=== PATIENT | female | born 1990 | race Caucasian/White ===

== ENCOUNTER 2020-01-05 11:32 | Emergency (ER) | payer OTHER, SELFPAY ==
--- NOTE | ~2020-01-05 | US_ITS ---
EXAMINATION: US OB <=14 wk fetus w TV DATE: 01/05/2020 14:02 INDICATION: Pelvic pain during first trimester of TECHNIQUE: Real-time pelvic ultrasound utilizing both a transvaginal and transabdominal probe was pe rformed. The interpreting radiologist was not present for the study. COMPARISON: None. FINDINGS: The uterus measures 7.4 x 6.3 x 8.0 cm. There is an intrauterine gestational sac. A yolk sac and fet al pole are identified. The crown rump length measures 1.6 cm, which correlates with an estimated ges tational age of 8 weeks and 0 days. heart motion is identified measuring 161 beats per minute ( bpm) by M-mode Doppler. The right ovary measures 3.8 x 2.6 x 2.5 cm. 1.4 cm anechoic likely corpus luteum cyst in the right o vary. The left ovary measures 2.1 x 1.6 x 2.1 cm. There is no free fluid in the pelvis. IMPRESSION: 1. Single living fetus with heart rate of 161 bpm. 2. Gestational age by ultrasound of 8 weeks 0 day(s) +/- 5 day(s) with ultrasound estimated date of delivery (DANIELA) of 08/16/2020. Reviewed, dictated and finalized at location A. IMPRESSION: 1. Single living fetus with heart rate of 161 bpm. 2. Gestational age by ultrasound of 8 weeks 0 day(s) +/- 5 day(s) with ultraso und estimated date of delivery (DANIELA) of 08/16/2020.
[2020-01-05 11:41] VITALS: BP 107/50; PULSE 85; RESP 18; TEMP 36.8; O2SAT 100
[2020-01-05] MEDS: SODIUM CHLORIDE 0.9% IV 1,000 ML 999 ML IV CONT (12:40)
--- NOTE | 2020-01-05 12:46 | ED.ABDPAIN ---
HPI - Abdominal Pain General Chief Complaint: Abdominal Pain Stated Complaint: , vomiting Time Seen by Provider: 01/05/20 11:54 Source: patient Mode of arrival: ambulatory Limitations: no limitations History of Present Illness HPI narrative: Patient is a 29-year-old female who presents to emergency department for evaluation of right adnexal discomfort noting aching pain that is been present for 6 weeks patient who is yet to follow-up with gynecology was seen a week ago and emergency department had ultrasound revealing right adnexal cyst. Patient notes she has had some white discharge noted is white denies any concern for STDs. Patient is currently with her fourth . Patient denies fever chills notes that she has had some nausea with a few episodes of emesis. Related Data Home Medications Medication Instructions Recorded Confirmed 01/05/20 Allergies Allergy/AdvReac Type Severity Reaction Status Date / Time No Known Allergies Allergy Unverified 01/05/20 11:47 Review of Systems Review of Systems: All systems reviewed & are unremarkable except as noted in HPI and below PMFSH Family History Family History (Updated 06/06/14 @ 07:13 by DOCTOR UNKNOWN) Mother Family history of malignant neoplasm of ovary, Onset Age: 30 Social History Social History Smoking status: Never smoker Alcohol intake: never Gender identity (if verbalized by the patient): Female Exam Narrative: Exam Narrative: GENERAL: Well-appearing, well-nourished, and in no acute distress. HEAD: Normocephalic, atraumatic. EYES: PERRLA and EOMI. ENT: Nares clear, no rhinorrhea or epistaxis. Mucous membranes moist. CHEST: Clear to auscultation. No respiratory distress. No wheezes rales or rhonchi HEART: Regular rate and rhythm. No murmur heard. Normal peripheral pulses. ABDOMEN: Soft, right adnexal tenderness no rebound or guarding, nondistended EXTREMITIES: Normal range of motion. No edema. SKIN: Warm, dry, no rash. NEURO: No focal deficits. Alert and oriented x3. PSYCH: Normal mood and affect. Course Course Emergency Course: Patient in the room in no distress aware of case findings treatment plan and diagnosis. No high risk changes in the blood work or imaging patient was offered STD testing but is refusing patient notes she will follow with electroplater and will return if symptoms worsen Vital Signs Vital signs: Vital Signs Temperature 98.2 F 01/05/20 11:41 Pulse Rate 85 01/05/20 11:41 Respiratory Rate 18 01/05/20 11:41 Blood Pressure 107/50 L 01/05/20 11:41 Pulse Oximetry 100 01/05/20 11:41 Temperature 98.2 F 01/05/20 11:41 Pulse Rate 97 01/05/20 14:31 Respiratory Rate 18 01/05/20 14:31 Blood Pressure 124/78 01/05/20 14:31 Pulse Oximetry 97 01/05/20 14:31 MDM - Abdominal Pain MDM Narrative Medical decision making narrative: Patient in the room in no distress aware of case findings treatment plan and diagnosis agreeing to follow-up as directed or to return if symptoms worsen or concerns. Patient is afebrile nontoxic-appearing no distress. Lab Data Result diagrams: 01/05/20 12:50 01/05/20 12:50 Labs: Lab Results 01/05/20 01/05/20 01/05/20 Range/Units 12:25 12:50 12:50 WBC 5.6 (4.5-10.0) K/mm3 RBC 4.36 (4.2-5.4) M/mm3 Hgb 13.5 (12.0-15.0) g/dL Hct 39.8 (37.0-47.0) % MCV 91.3 (80-100) fl MCH 31.0 (26-34) pg MCHC 33.9 (32-36) g/dl RDW 12.5 (11.5-14.5) % Plt Count 269 (150-375) k/mm3 MPV 10.0 (7.4-10.4) fl Immature Gran % (Auto) 0.2 (0-0.5) % Neut % (Auto) 42.9 L (45.5-73.1) % Lymph % (Auto) 44.8 H (18.3-44.2) % Ford % (Auto) 11.0 H (2.6-8.5) % Eos % (Auto) 0.7 (0-4.4) % Baso % (Auto) 0.4 (0.2-1.2) % Lymph # (Auto) 2.49 (0.9-3.2) K/mm3 Ford # (Auto) 0.6 (0.1-0.6) K/mm3
[2020-01-05 12:49] LABS: Add Urine Microscopic? YES; Amorphous Sediment Urine Few; Appearance Urine Cloudy (Clear); Bacteria Urine 1+ /hpf; Bilirubin Urine Negative (Negative); Blood Urine Negative (Negative); Budding Yeast Urine Present /hpf; Color Urine Yellow (Yellow); Glucose Urine UA Negative (Negative); Ketones Urine 1+ mg/dL (Negative); Leukocyte Esterase Ur Negative LEU/UL (Negative); Mucus Urine Rare /lpf; Nitrate Urine Negative (Negative); Protein Urine 1+ mg/dL (Negative); RBC Urine 0-2 /hpf (0-2); Specific Grav Ur 1.017 (1.001-1.035); Squamous Epithelial Cell Urine Many /hpf (Few); Urobilinogen Urine Negative mg/dL (<2.0); WBC Urine 0-3 /hpf
[2020-01-05 13:02] LABS: Basophils Percent Auto 0.4 % (0.2-1.2); Eosinophils Percent Auto 0.7 % (0-4.4); Hematocrit 39.8 % (37.0-47.0); Hemoglobin 13.5 g/dL (12.0-15.0); Immature Granulocyte Absolute 0.01 K/mm3 (0.00-0.031); Immature Granulocyte Percent A 0.2 % (0-0.5); Lymphocytes Absolute Auto 2.49 K/mm3 (0.9-3.2); Lymphocytes Percent Auto 44.8 % (18.3-44.2); Mean Corpuscular HGB Conc 33.9 g/dl (32-36); Mean Corpuscular Volume 91.3 fl (80-100); Monocytes Absolute Auto 0.6 K/mm3 (0.1-0.6); Neutrophils Absolute Auto 2.4 K/mm3 (1.3-6.7); Neutrophils Percent Auto 42.9 % (45.5-73.1); Platelet Count Result 269 k/mm3 (150-375); Red Blood Count 4.36 M/mm3 (4.2-5.4); Red Cell Distribution Width 12.5 % (11.5-14.5); White Blood Count 5.6 K/mm3 (4.5-10.0)
[2020-01-05 13:17] LABS: Alanine Aminotransferase 16 U/L (4-35); Albumin Level 4.6 g/dL (3.5-5.1); Alkaline Phosphatase 39 U/L (38-126); Aspartate Amino Transferase 29 U/L (14-36); Bilirubin,Total 0.9 mg/dL (0.2-1.3); Blood Urea Nitrogen 10 mg/dL (7-17); Calcium 9.7 mg/dL (8.4-10.2); Carbon Dioxide 19 mmol/L (22-30); Chloride 108 mmol/L (98-107); Estimated CRCL calculation 111 ml/min; Estimated Glomerular Filt Rate > 60; Glucose 87 mg/dL (65-105); Potassium 4.1 mmol/L (3.4-5.0); Sodium 137 mmol/L (137-145)
[2020-01-05 14:31] VITALS: BP 124/78; PULSE 97; RESP 18; O2SAT 97
[2020-01-05] MEDS: ONDANSETRON INJ 4 MG/2 ML VIAL IV PUSH (14:44)
[2020-01-05] MEDS: ONDANSETRON INJ 4 MG/2 ML VIAL (14:48)
== END 2020-01-05 14:49 | disposition home or self-care (01) ==
PROVIDERS: Emergency Medicine Emergency Medical Services; Emergency Provider Emergency Medicine
DX: O26.891 Other specified pregnancy related conditions, first trimester (principal); R10.2 Pelvic and perineal pain; Z3A.08 8 weeks gestation of pregnancy
CPT/HCPCS: 36415; 76801; 76817; 80053; 81001; 84702; 85025; 86900; 86901; 96361; 96374; 96375; 99284; J2405; J7030

== ENCOUNTER 2020-06-12 23:20 | Observation (INO) | payer OTHER, SELFPAY ==
--- NOTE | 2020-06-12 23:21 | PC.NURSE ---
Pt. amb to ed w/ cc Right sided Jaw pain. Upon arrival to room. pt states she is 31 wks and is having abdominal cramping and low back pain. Pt. states she is . States she is feeling baby move normally. pt also reports general weakness. Pt. HR 88, BP 118/70, Temp 98.3 Oral, and respirations 18. Per ER Charge Martha Chauhan RN, take pt. to OB for evaluation. Spoke w/ Christina. Informed her pt. is Afebrial and stable and this time for transport.
[2020-06-12 23:28] VITALS: TEMP 36.7
[2020-06-12 23:31] VITALS: BP 113/58; PULSE 72
[2020-06-12 23:32] VITALS: BP 115/65; PULSE 70
[2020-06-12 23:35] VITALS: BMI 25.0
--- NOTE | 2020-06-12 23:43 | OBADM ---
This patient, Jodie Arellano, admitted to the OB room OB Post 113 for observation. Patient/family oriented to hospital policies and general routines including ID bracelet, bed and alarms, visiting hours, pain management, procedures, bathroom and other care routines, personal items, smoking policy, room service/diet, and visiting hours. Patient/Family are encouraged to report perceived risks to care and to ask questions if they do not understand what they are told or what they should do. Pt states pain to abd and back has been off and on for past few days. 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 Pt jaw pain started this evening prior to arrival. pt denies leaking or bleeding. pt feeling movements. baby very active and audibly active. pt states movements are uncomfortable. pt moans when movements are noted.
[2020-06-12 23:46] VITALS: BP 102/58; PULSE 79
[2020-06-13 00:01] VITALS: BP 108/55; PULSE 72
[2020-06-13 00:19] LABS: Add Urine Microscopic? YES; Amorphous Sediment Urine Few; Appearance Urine Cloudy (Clear); Bacteria Urine Trace /hpf; Bilirubin Urine Negative (Negative); Blood Urine Negative (Negative); Color Urine Yellow (Yellow); Glucose Urine UA Negative (Negative); Ketones Urine Negative (Negative); Leukocyte Esterase Ur Negative LEU/UL (NEGATIVE); Mucus Urine Rare /lpf; Nitrate Urine Negative (Negative); Protein Urine Negative (Negative); RBC Urine 0-2 /hpf (0-2); Specific Grav Ur 1.011 (1.001-1.035); Squamous Epithelial Cell Urine Occasional /hpf (Few); Urobilinogen Urine Negative mg/dL (<2.0); WBC Urine 0-3 /hpf (0-3)
--- NOTE | 2020-06-13 00:50 | PC.NURSE ---
Called Dr. Harrell. Report and lab results given. Orders received to send pt to ED if pt want to have jaw pain evaluated or pt may be d/c'd home if she does not want to be seen in ED. Upon entering pt room. Pt was sound asleep. Called pt by name and touched her shoulder before pt awoke. Pt declines wanting to be seen in ED. Pt state pain cont at this time.
--- NOTE | 2020-07-08 14:01 | PM.OBTRLD ---
OB - Triage/Final Diagnosis Evaluation Laboratory results: Laboratory Tests 06/13/20 00:05 Urine Color Yellow Urine Appearance Cloudy H Urine pH 7.0 Ur Specific [place] 1.011 Urine Protein Negative Urine Glucose (UA) Negative Urine Ketones Negative Ur Blood (Man) Negative Urine Nitrate Negative Urine Bilirubin Negative Urine Urobilinogen Negative Ur Leukocyte Esterase Negative Urine RBC 0-2 Urine WBC 0-3 Ur Squamous Epith Cells Occasional Amorphous Sediment Few H Urine Bacteria Trace Urine Mucus Rare Final Diagnosis (1) False labor: Code(s): O47.9 - False labor, unspecified Status: Acute
== END 2020-06-13 01:06 | disposition home or self-care (01) ==
PROVIDERS: Admitting Provider Obstetrics & Gynecology; Visit Provider Obstetrics & Gynecology
DX: O47.9 False labor, unspecified (principal); Z3A.00 Weeks of gestation of pregnancy not specified
CPT/HCPCS: 81001; 87086; G0378; G0379

== ENCOUNTER 2020-08-02 09:43 | Outpatient (CLI) | payer OTHER, SELFPAY ==
[2020-08-02 09:59] LABS: Hematocrit 34.7 % (37.0-47.0); Hemoglobin 11.8 g/dL (12.0-15.0); Mean Corpuscular Volume 96.9 fl (80-100); Mean Platelet Volume 10.5 fl (7.4-10.4); Platelet Count Result 258 k/mm3 (150-375); Red Blood Count 3.58 M/mm3 (4.2-5.4); Red Cell Distribution Width 12.7 % (11.5-14.5); White Blood Count 9.4 K/mm3 (4.5-10.0)
[2020-08-04 11:56] LABS: Rapid Plasma Reagin Non-Reactive (NonReactive)
== END 2020-08-02 09:44 | disposition home or self-care (01) ==
PROVIDERS: Visit Provider Obstetrics & Gynecology
DX: Z01.818 Encounter for other preprocedural examination (principal)
CPT/HCPCS: 36415; 85027; 86592; 86850; 86900; 86901

== ENCOUNTER 2020-08-04 05:33 | Inpatient (IN) | payer OTHER, SELFPAY ==
[2020-08-04] VITALS (78 sets, daily range): BP systolic 98–127; BP diastolic 55–78; PULSE 49–98; RESP 12–18; TEMP 36.1–36.6; O2SAT 96–100; BMI 25.8
[2020-08-04] MEDS: LACTATED RINGERS 1,000 ML 125 ML IV CONT ×3 (07:01→08:52)
--- NOTE | 2020-08-04 07:51 | WPDANESEPPF ---
Anes - Initial Pre Proc Eval Procedure: Operation Date: 08/04/20 07:30 Proposed Procedures p Repeat Section - Maria Guadalupe Witt MD Date/Time: 08/04/20 07:51 Surgeon: Maria Guadalupe Witt MD Pre Op Diagnosis: Repeat Patient Data Age: 30 Gender: F Height: 1.57 m Weight: 64 kg Last Vital Signs Pulse 87 08/04/20 06:45 BP 116/76 08/04/20 06:45 Pulse Ox 99 08/04/20 06:34 Allergies Allergy/AdvReac Type Severity Reaction Status Date / Time No Known Allergies Allergy Verified 06/12/20 23:05 Home Medications Medication Instructions Recorded Confirmed Type 1 tablet PO DAILY 06/12/20 07/11/20 History cholecalciferol (vitamin D3) 25 mcg PO DAILY 07/11/20 07/11/20 History [Vitamin D3] ferrous sulfate [Iron (ferrous 325 mg PO BID 07/11/20 07/11/20 History sulfate)] Patient hx anesthesia problems: none Family hx anesthesia problems: none PMFSH Family History Family History Mother Family history of malignant neoplasm of ovary, Onset Age: 30 Social History Social History Smoking status: Never smoker Alcohol intake: never Substance use: current Gender identity (if verbalized by the patient): Female Spiritual care concerns: No Anes - Eval Final PreProcedure Day of Procedure 08/04/20 07:51 Patient weight: overweight Heart: regular rate and rhythm Lungs: clear to auscultation and normal air movement Airway: Mallampati scale class II Neurological: alert and oriented Last oral intake: >/= 8 hours ASA classification: II Emergent: no Anesthetic plan: proceed Anesthesia type and monitoring: regional spinal and standard monitoring Informed Consent: The patient's anesthetic plan and its attendant risks and benefits were discussed with the patient/family/POA. Questions were solicited and answers provided to the satisfaction of the patient/family/POA.
--- NOTE | 2020-08-04 08:37 | PM.IMHP ---
H&P: HPI History of Present Illness Date/Time: 08/04/20 08:37 Chief complaint: Repeat Narrative: Jodie Arellano is a 30 year old female Multiip at term with previous deliveries. Patient desires sterilization. Once repeat delivery. We have agreed to proceed with delivery. She denies any contractions, vaginal bleeding, loss of fluid. She reports good movement. She denies any headache, blurry vision, epigastric pain. She denies any chest pain or shortness of breath. She denies any nausea, vomiting, fever, chills. Review of Systems Constitutional: Constitutional: Reports no additional constitutional complaints, Denies fatigue, Denies headache(s), Denies lethargy and Denies weakness Eyes: Eyes: Reports no additional eye complaints, Denies blurry vision and Denies photophobia ENT: Reports as per HPI, Denies headache(s) and Denies neck pain Cardiovascular: Cardiovascular: Denies chest pain, Denies diaphoresis, Denies leg edema, Denies palpitations and Denies dyspnea Respiratory: Respiratory: Denies hemoptysis, Denies dyspnea and Denies wheezing Gastrointestinal: Gastrointestinal: Denies abdominal pain, Denies melena, Denies bloating, Denies hematochezia, Denies nausea and Denies vomiting Genitourinary: Genitourinary: Reports no additional female genitourinary complaints Musculoskeletal: Musculoskeletal: Denies joint swelling, Denies neck pain, Denies numbness and Denies stiffness Neurologic: Denies Abnormal speech present, Denies confusion, Denies headache(s), Denies numbness and Denies weakness Psychiatric: Psychiatric: Denies anxiety, Denies confusion, Denies depression, Denies homicidal ideation and Denies suicidal ideation Endocrine: Endocrine: Denies fatigue and Denies palpitations Allergic/Immunologic: Allergic/Immunologic: Denies wheezing PMF Family History Family History Mother Family history of malignant neoplasm of ovary, Onset Age: 30 Social History Social History Smoking status: Never smoker Alcohol intake: never Substance use: current Gender identity (if verbalized by the patient): Female Spiritual care concerns: No Meds Home Medications and Allergies Home Medications Medication Instructions Recorded Confirmed Type 1 tablet PO DAILY 06/12/20 07/11/20 History cholecalciferol (vitamin D3) 25 mcg PO DAILY 07/11/20 07/11/20 History [Vitamin D3] ferrous sulfate [Iron (ferrous 325 mg PO BID 07/11/20 07/11/20 History sulfate)] Allergies Allergy/AdvReac Type Severity Reaction Status Date / Time No Known Allergies Allergy Verified 06/12/20 23:05 Vital Signs Vital Signs - 24 hr 08/04/20 05:54 08/04/20 05:55 08/04/20 05:59 Pulse Rate 79 Blood Pressure 111/67 Pulse Oximetry 99 100 08/04/20 06:00 08/04/20 06:04 08/04/20 06:09 Pulse Rate 73 Blood Pressure 109/64 Pulse Oximetry 100 99 08/04/20 06:14 08/04/20 06:15 08/04/20 06:19 Pulse Rate 76 Blood Pressure 106/64 Pulse Oximetry 100 100 08/04/20 06:24 08/04/20 06:29 08/04/20 06:30 Pulse Rate 86 Blood Pressure 112/69 Pulse Oximetry 99 100 08/04/20 06:34 08/04/20 06:45 Pulse Rate 87 Blood Pressure 116/76 Pulse Oximetry 99 Exam Const: General: healthy appearing, comfortable and no acute distress; No confusion Orientation/consciousness: No confusion Eyes: Direct Ophthalmoscopy: No photophobia Resp: Auscultation: clear to auscultation bilaterally, no rales, no rhonchi and no wheezes Cardio: Rate: regular rate Heart sounds: no click, no murmurs and no rubs GI: Inspection: non-distended GI Palp: No abdominal tenderness Auscultation: normal bowel sounds Neuro: General: No confusion Speech: No Abnormal speech present Extrem: General: normal to inspection, no pedal edema and no calf tenderness As
[2020-08-04] MEDS: ceFAZolin 2 GM/D5W 50 ML 2 GM/50 ML BAG IVPB (08:52)
--- NOTE | 2020-08-04 10:09 | PM.PROC ---
Procedure Note - Detailed Date of procedure: 08/04/20 Pre-op diagnosis: Repeat Post-op diagnosis: same Procedure performed: repeat low-transverse delivery Description of procedure: The patient was taken the operating room. She was prepped and draped in the dorsal supine position with leftward tilt after induction of spinal anesthetic. When anesthesia was found to be adequate a low-transverse skin incision was made and carried down to the level the fascia with the knife. The fascial incision was made at the midline with a scalpel. The fascial incision was extended laterally with Maddox scissors. The fascia was tented upward superior and inferior with Conchita clamps. The rectus muscles were dissected off bluntly. The rectus muscles at the midline. The preperitoneal fat was dissected bluntly at the superior aspect of the separate the rectus muscles. The peritoneal cavity was entered bluntly in the same area. The peritoneal incision was extended superior and inferior with good visualization of bladder. Bladder blade was inserted. A low-transverse incision was made on the uterus with the scalpel. It was carried down the level of the amniotic cavity with a knife. The amniotic cavity bluntly. The uterine incision was made laterally with blunt traction. The infant was delivered. The cord was clamped and cut. The infant was handed off to waiting pediatric staff. Cord bloods were obtained. The placenta was removed manually. The uterus was exteriorized. Uterus cleared of all clots and debris. Uterus closed in 0 Vicryl in a running locked fashion. An imbricating layer of 0 Vicryl was also placed on the to bolster the closure. The uterus was returned to the abdomen. The gutters were cleared of all clots and debris. The fascia was closed 0 Vicryl in a running fashion. Subcutaneous tissue was irrigated and bleeding areas were cauterized. The skin was closed with subcuticular absorbable kofi. The incision was covered with derma camargo. The patient tolerated the procedure well. She was taken recovery room stable condition. Sponge, lap, needle counts were correct x2. Anesthesia: spinal Surgeon: Maria Guadalupe Witt MD Drains: No Packing: No Pathology: none sent Complications: No immediate complications Condition: stable Disposition: floor Findings: Normal maternal anatomy. Average size infant with normal Apgars.
[2020-08-04] MEDS: OXYTOCIN 30 UNITS/NS 500 ML 30 UNITS/500 ML BAG 125 UNITS IV CONT (11:41)
[2020-08-04] MEDS: KETOROLAC 30 MG/ML VIAL (*BKC) IV PUSH (11:55)
--- NOTE | 2020-08-04 14:55 | OBPPTRN ---
1237 Patient transferred to room #282 via stretcher. Support person present. Oriented to unit, room, information board, rooming in, admission packet and security measures. Patient verbalizes understanding.
[2020-08-04] MEDS: KCL 20 MEQ/D5/0.45% SOD CHL 1,000 ML 125 ML IV CONT (16:30)
[2020-08-04] MEDS: DOCUSATE SODIUM 100 MG CAPSULE PO (19:22)
[2020-08-04] MEDS: FERROUS SULFATE 324 MG TABLET PO (19:22)
[2020-08-04] MEDS: HYDROcodone/acetaminophen (*CRX) 5-325 MG TABLET 1 TAB PO (19:22)
[2020-08-04] MEDS: IBUPROFEN 600 MG TABLET PO (19:23)
[2020-08-05 00:40] VITALS: BP 102/59; PULSE 58; RESP 16; TEMP 36.6; O2SAT 98
[2020-08-05] MEDS: HYDROcodone/acetaminophen (*CRX) 5-325 MG TABLET 1 TAB PO ×5 (00:45→19:49)
[2020-08-05] MEDS: IBUPROFEN 600 MG TABLET PO ×3 (04:42→19:48)
[2020-08-05 04:45] VITALS: BP 103/62; PULSE 55; RESP 16; TEMP 36.6; O2SAT 99
[2020-08-05 05:38] LABS: Basophils Percent Auto 0.3 % (0.2-1.2); Eosinophils Absolute Auto 0.1 K/mm3 (0-0.3); Eosinophils Percent Auto 0.9 % (0-4.4); Hematocrit 36.4 % (37.0-47.0); Hemoglobin 12.1 g/dL (12.0-15.0); Immature Granulocyte Absolute 0.04 K/mm3 (0.00-0.031); Immature Granulocyte Percent A 0.3 % (0-0.5); Lymphocytes Absolute Auto 2.18 K/mm3 (0.9-3.2); Lymphocytes Percent Auto 18.8 % (18.3-44.2); Mean Corpuscular HGB Conc 33.2 g/dl (32-36); Mean Corpuscular Hemoglobin 32.5 pg (26-34); Mean Corpuscular Volume 97.8 fl (80-100); Mean Platelet Volume 10.9 fl (7.4-10.4); Monocytes Absolute Auto 0.9 K/mm3 (0.1-0.6); Neutrophils Absolute Auto 8.3 K/mm3 (1.3-6.7); Neutrophils Percent Auto 71.7 % (45.5-73.1); Platelet Count Result 235 k/mm3 (150-375); Red Blood Count 3.72 M/mm3 (4.2-5.4); Red Cell Distribution Width 12.8 % (11.5-14.5); White Blood Count 11.6 K/mm3 (4.5-10.0)
--- NOTE | 2020-08-05 07:13 | WPDANLDPN2 ---
Anes-Prog Note L&D Date/Time: 08/05/20 07:13 Comfortable throughout: section Neuraxial method: spinal Epidural/Spinal procedure site: clean & non-tender Neuro status: Neuro function grossly intact. Cardiovascular status: normal Respiratory status: normal Airway patency: baseline Mental status: baseline Post-Op hydration status: normal Vital Signs: Last Vital Signs Temp 36.6 C 08/05/20 04:45 Pulse 55 L 08/05/20 04:45 Resp 16 08/05/20 04:45 BP 103/62 08/05/20 04:45 Pulse Ox 99 08/05/20 04:45 Pain score (VAS): 10/19 I/O: Intake & Output 08/04/20 08/04/20 08/05/20 15:59 23:59 07:59 Intake Total 1000 100 500 Output Total 900 1525 1650 Balance 100 -1425 -1150 Post-procedural complaints: none Patient feedback: Patient satisfied with anesthetic care.
--- NOTE | 2020-08-05 07:14 | WPDANLDNPN2 ---
Anes-Prog Note L&D-Neuraxial Date/Time: 08/05/20 07:14 Neuraxial medications: intrathecal PF morphine Opiod-related complaints: none Patient feedback: Patient satisfied with post-operative pain management.
[2020-08-05] MEDS: DOCUSATE SODIUM 100 MG CAPSULE PO (07:33)
[2020-08-05] MEDS: CHOLECALCIFEROL 1,000 UNITS TABLET 1000 UNITS PO (07:34)
--- NOTE | 2020-08-05 07:35 | P.PNOB_ITS ---
OB - PN: Subj Subjective Date/time seen: 08/05/20 07:35 Patient comments: no complaints baby status: doing well OB - PN: Obj Data Labs CBC & Chem 7: 08/05/20 04:53 Labs: Laboratory Results - last 24 hr 08/05/20 04:53 WBC 11.6 H RBC 3.72 L Hgb 12.1 Hct 36.4 L MCV 97.8 MCH 32.5 MCHC 33.2 RDW 12.8 Plt Count 235 MPV 10.9 H Immature Gran % (Auto) 0.3 Neut % (Auto) 71.7 Lymph % (Auto) 18.8 [place] % (Auto) 8.0 Eos % (Auto) 0.9 Baso % (Auto) 0.3 Lymph # (Auto) 2.18 [place] # (Auto) 0.9 H Eos # (Auto) 0.1 Baso # (Auto) 0.0 Abs Immat Gran (auto) 0.04 H Absolute Neuts (auto) 8.3 H Absolute Nucleated RBC 0.0 Nucleated RBC % 0.0 OB - PN A/P Plan day: 1 Plan: routine care Time Spent With Patient Time: Total time spent is greater than 50% in coordination of care (as documented) at patient's floor/unit and/or counseling patient: Review of Systems Review of Systems: All systems reviewed & are unremarkable except as noted in HPI and below Exam Const: General: cooperative Neuro: General: oriented to person and patient oriented x3 Psych: Affect: normal affect
[2020-08-05 07:45] VITALS: BP 97/64; PULSE 57; RESP 16; TEMP 36.4; O2SAT 98
[2020-08-05] MEDS: SIMETHICONE 80 MG TAB.CHEW PO ×3 (09:09→19:49)
[2020-08-05 20:00] VITALS: BP 108/65; PULSE 78; RESP 18; TEMP 36.9; O2SAT 98
[2020-08-06] MEDS: HYDROcodone/acetaminophen (*CRX) 5-325 MG TABLET 1 TAB PO ×3 (01:13→12:05)
[2020-08-06] MEDS: IBUPROFEN 600 MG TABLET PO ×2 (05:00→12:03)
[2020-08-06] MEDS: SIMETHICONE 80 MG TAB.CHEW PO ×3 (05:01→12:03)
[2020-08-06 07:50] VITALS: BP 110/72; PULSE 55; RESP 18; TEMP 36.8; O2SAT 99
--- NOTE | 2020-08-06 08:00 | PC.NURSE ---
PT introductions made and plan of care discussed per post op c section, pain management, bottle feeding, daily care activities and pending discharge to home. PT verbalized understanding of such care.
[2020-08-06] MEDS: HYDROcodone/acetaminophen (*CRX) 10-325 MG TABLET 1 TAB PO (08:12)
--- NOTE | 2020-08-06 08:27 | PM.OBPNVD ---
OB - PN: Subj Subjective Date/time seen: 08/06/20 08:27 Patient comments: no complaints, pain well controlled, tolerating diet and flatus present baby status: doing well OB - PN: Obj Data Labs CBC & Chem 7: 08/05/20 04:53 OB - PN A/P Plan day: 2 Plan: routine care and discharge home (Follow up in 1 week) Time Spent With Patient Time: Total time spent is greater than 50% in coordination of care (as documented) at patient's floor/unit and/or counseling patient: Time with patient: less than 15 minutes Review of Systems Review of Systems: All systems reviewed & are unremarkable except as noted in HPI and below Exam Narrative: Exam Narrative: Fundus firm. Vaginal flow controlled. Incision dry and intact. Negative homans. No redness, warmth, or pain of lower ext. Const: General: comfortable Chest: Breast/axilla inspection: normal inspection of the breasts Resp: Effort & Inspection: normal respiratory effort Auscultation: clear to auscultation bilaterally Cardio: Rate: regular rate GI: GI Palp: Yes Soft to palpation Psych: Appearance: grossly normal Affect: normal affect Attitude: cooperative Thought content: Yes Normal thought content present Judgement: Good judgement present (Psych)
[2020-08-06 09:00] VITALS: PULSE 55; RESP 18; O2SAT 99
[2020-08-06] MEDS: DOCUSATE SODIUM 100 MG CAPSULE PO (09:56)
[2020-08-06] MEDS: MULTIVIT/MIN/PREN/FOL AC/IRON TABLET 1 TAB PO (09:57)
[2020-08-06] MEDS: SIMETHICONE 80 MG TAB.CHEW (09:57)
[2020-08-06] MEDS: CHOLECALCIFEROL 1,000 UNITS TABLET 1000 UNITS PO (09:57)
--- NOTE | 2020-08-06 10:00 | PC.NURSE ---
Patient viewed the discharge video Mother & Baby Care, The First Two Weeks . Patient was given the opportunity and encouraged to ask questions. Patient verbalized understanding of information shared and has been given the mother/baby guide for home reference.
--- NOTE | 2020-08-06 12:00 | PC.NURSE ---
Pt received discharge instructions per protocol and verbalized understanding of such instructions.
--- NOTE | 2020-08-06 12:50 | PC.NURSE ---
PT discharged to home ambulatory accompanied by spouse and to waiting car. Follow up appts confirmed
[2020-08-07 11:23] VITALS: BP 104/58; PULSE 64; RESP 20; TEMP 36.8; O2SAT 100
--- NOTE | 2020-08-29 08:21 | PM.OBDSVD ---
DS: Admitting Diagnosis Admitting Diagnosis Admitting Diagnosis: Repeat DS: Discharge Diagnosis Discharge Diagnosis (1) Previous section: Code(s): Z98.891 - History of uterine scar from previous surgery Status: Acute OB - DS: Summary OB Procedures : None OB Procedures Intrapartum: OB Procedures: : None Peripartum Data Delivery Method: Section Procedures: Procedures Operation Date: 08/04/20 07:30 Actual Procedures Side Surgeon p Repeat Section Maria Guadalupe Witt MD Time Spent with Patient Time attestation: Total time spent providing and/or coordinating discharge services: DS: Data Data Completed and Pending Completed studies during hospitalization: Pending at discharge 08/04/20 09:49 Surgical [PTH] Routine Discharge Plan Discharge Attending physician on discharge: Maria Guadalupe Witt Consulting providers: Estrella Eisenberg ; Madelaine Carias ; Rolan Neves Discharging Clinician: Estrella Eisenberg Patient Disposition: Home, Self-Care Activity: no driving and pelvic rest Diet: as tolerated Wound Care Instructions: follow printed instructions Discharge Instructions: Education: Mom and Baby Guide Given to: Mother Follow-Up: Call your delivering provider's office for an appointment to be seen in: 1 Week [facility]. Appointment Date/Time: August 07, 2020 at 11:00 am What to expect at your follow-up visit: Blood Pressure Check Call [phone] if you are unable to keep your appointment time. BREAST CARE: * Wear a snug supportive bra. * For engorgement discomfort: Bottle Feeding: * May apply ice packs ABDOMINAL INCISION: (if applicable) * Allow incision to air dry * Do NOT use lotions for powders on your incision * When showering, allow soap and water to run over the incision, but do not wash incision PERINEAL CARE: * Until bleeding stops, use your iker bottle after urinating * Change your pad frequently throughout the day * No tub baths until seen by your physician - You may shower ACTIVITY: * Rest as much as possible. * Do not exercise or lift anything heavier than your baby (such as laundry or other children.) * Avoid stairs or driving as much as possible. * Do not put anything into the vagina. No douching, tampons, or sexual activity until seen by physician. NOTIFY PHYSICIAN IF YOU HAVE ANY QUESTIONS OR IF ANY OF THE FOLLOWING SYMPTOMS OCCUR: * If your incision becomes red, swollen, or more painful than what you have experienced in the hospital. * If your vaginal bleeding becomes foul smelling. * If your vaginal bleeding becomes more heavy than a period or if your bleeding changes from pink to bright red. However, you may pass an occasional walnut-sized clot once or twice for the first week . * If you experience a sharp, shooting pain in you calves. * If you discover a hard, reddened area on your breast or if you experience flu-like symptoms. * If you have a fever of 100.4 or greater DIET: * Eat regular, well-balanced meals. * Drink plenty of fluids daily. If , drink to thirst. Patient Instructions: Antibiotic Form Stand Alone Forms: General Discharge Information Follow-up/Referrals: Maria Guadalupe Witt MD [Physician] - Discharge Medications: New hydrocodone-acetaminophen 5-325 mg Tablet 1 tab PO Q3H PRN (Reason: Moderate Pain (4-6)) Qty: 10 RF: 0 ibuprofen 600 mg Tablet 600 mg PO Q6H PRN (Reason: Cramping) Qty: 10 RF: 0 Continued 28-800 mg-mcg Tablet 1 tablet PO DAILY RF: 0 cholecalciferol (vitamin D3) [Vitamin D3] 25 mcg (1,000 unit) Capsule 25 mcg PO DAILY RF: 0 Discontinued ferrous sulfate [Iron (ferrous sulfate)] 325 mg (65 mg iron) Tablet 325 mg PO BID RF: 0 Date of admission:
== END 2020-08-06 12:50 | disposition home or self-care (01) | DRG 540 ==
LOC: ANHLDR 05:36 → ANHOB2 12:58
PROVIDERS: Admitting Provider Obstetrics & Gynecology; Visit Provider Obstetrics & Gynecology
PROC: 10D00Z1 Extraction of Products of Conception, Low, Open Approach (ICD-10-PCS; CPT 59514; principal; 2020-08-04 07:30)
DX: O34.211 Maternal care for low transverse scar from previous cesarean delivery (principal); Z37.0 Single live birth; Z3A.39 39 weeks gestation of pregnancy; Z30.2 Encounter for sterilization
CPT/HCPCS: 36415; 85025; 88302; 88307; A9270; J0131; J0690; J1885; J2274; J2370; J2405; J2590; J3480; J7120

== ENCOUNTER 2020-12-29 12:44 | Emergency (ER) | payer OTHER, SELFPAY ==
[2020-12-29 13:15] VITALS: BP 125/82; PULSE 79; RESP 16; TEMP 36.6; O2SAT 97
--- NOTE | 2020-12-29 13:56 | PC.NURSE ---
Pt approaches intake desk asking if it's ok that she leaves and comes back. Explained will have to go through triage and intake again. Pt states that's ok. I have to go picking tech my daughter . Amb to exit alone.
== END 2020-12-29 14:00 | disposition left against medical advice (07) ==
LOC: ANHED 14:03
DX: S09.90XA Unspecified injury of head, initial encounter (principal)
CPT/HCPCS: 99199